=== PATIENT | female | born 1965 | race Caucasian/White ===

== ENCOUNTER 2020-05-13 07:43 | Observation (INO) | payer BC ==
--- NOTE | 2020-05-06 14:52 | HP ---
DATE: 05/13/2020 HISTORY OF PRESENT ILLNESS: The patient is a 54 year-old female who presents to the office with complaints of some postmenopausal bleeding and cramping. She is also having some issues with some urinary incontinence. She has had a history of breast cancer. She has had chemotherapy for that. She has been in menopause for 2 years. The patient has a moderate-sided pannus that causes discomfort and occasional ulcerations in the skin fold. PAST MEDICAL HISTORY: Breast cancer, neuropathy. CURRENT MEDICATIONS: Gabapentin, aspirin, a B complex vitamin and folic acid tablet. ALLERGIES: NO ALLERGIES. PAST SURGERIES: Partial lumpectomy in the left breast, endometrial ablation, cholecystectomy, and wisdom teeth removed. SOCIAL HISTORY: Occasional alcohol and smokes E-cigarettes. FAMILY HISTORY: Diabetes, heart disease, hypertension, lung cancer, chronic obstructive pulmonary disease. REVIEW OF SYSTEMS: CONSTITUTIONAL: Denies fever or chills. CHEST: Denies shortness of breath or cough. CVS: No chest pain. ABDOMEN: Denies pain, nausea, vomiting, diarrhea, constipation, or rectal bleeding. GENITOURINARY: Denies dysuria or hematuria. Reports dysfunctional uterine bleeding and low pelvic pain. EXTREMITIES: Denies swelling. PHYSICAL EXAMINATION: GENERAL: No acute distress. CHEST: Nonlabored. No shortness of breath. CVS: Regular rate and rhythm. ABDOMEN: Soft, nontender, nondistended. EXTREMITIES: No edema. NEURO: Alert, oriented. PSYCH: Appropriate. IMPRESSION: 1. DYSFUNCTIONAL UTERINE BLEEDING. 2. URINARY INCONTINENCE. PLAN: For a total abdominal hysterectomy, bilateral salpingo-oophorectomy, MMK and partial paniculectomy. This report was dictated for Dr. Ha by Fiona Mckeon NP.
[2020-05-13] MEDS ORDERED: Astramorph-Pf 5 MG/10 ML ONE (07:57)
[2020-05-13] MEDS ORDERED: MEFOXIN 2 GM PREMIX** 2 GM/50 ML ML IV SCH (08:00)
[2020-05-13] MEDS ORDERED: Lactated Ringers 1,000 ML IV SCH (08:00)
[2020-05-13] MEDS ORDERED: Lactated Ringers 1,000 ML IV ONE ×2 (08:03→12:36)
--- NOTE | 2020-05-13 08:10 | HP ---
DATE OF SURGERY: 05/13/2020 HISTORY OF PRESENT ILLNESS: The patient presents to the office with dysfunctional uterine bleeding. The patient has had menopause two years ago, having intermittent vaginal bleeding and pelvic pain. She has a history of breast cancer. She sees Dr. Ramon. She has also been having some urinary incontinence. She does have a cystocele. Bleeding is lessening but still current. She has had pelvic ultrasound. She does have some uterine fibroids. PAST MEDICAL HISTORY: Breast cancer. Urinary incontinence. She is postmenopausal. She has some neuropathy, endometriosis. PAST SURGICAL HISTORY: Partial lumpectomy of the right breast. Endometrial ablation. Laparoscopic cholecystectomy. [place] teeth extraction. ALLERGIES: NKDA. MEDICATIONS: Gabapentin, aspirin, B-complex, folic acid. FAMILY HISTORY: Diabetes. Heart disease. Hypertension. Lung cancer. COPD. SOCIAL HISTORY: Occasional wine. Smokes E-cigarette. REVIEW OF SYSTEMS: CONSTITUTIONAL: No fever. No chills. CHEST: Denies shortness of breath. CVS: Denies chest pain. ABDOMEN: Reports low abdominal pelvic pain and vaginal bleeding. Denies nausea, vomiting, diarrhea, constipation or rectal bleeding. : Reports urinary incontinence. Denies dysuria or hematuria. PHYSICAL EXAMINATION: GENERAL: No acute distress. CHEST: Nonlabored. No shortness of breath. CVS: Regular rate and rhythm. ABDOMEN: Soft, tender to palpation in lower bilateral quadrants. EXTREMITIES: No edema. NEUROLOGIC: Alert. PSYCHIATRIC: Appropriate. IMPRESSION: Moderate symptomatic cystocele, dysfunctional uterine bleeding, history of breast cancer, uterine fibroids. PLAN: Total abdominal hysterectomy, bilateral salpingo-oophorectomy and MMK procedure. As dictated by Fiona Mckeon NP.
[2020-05-13 09:22] LABS: ABO TYPING O; Antibody Screen NEGATIVE (NEGATIVE); RH TYPING POSITIVE
[2020-05-13] MEDS ORDERED: DIPRIVAN 200 MG/20 ML IV ONE (09:38)
[2020-05-13] MEDS ORDERED: Quelicin Fliptop 200 MG/10 ML ONE (09:38)
[2020-05-13] MEDS ORDERED: Zofran 4 MG/2 ML VIAL ONE (09:38)
[2020-05-13] MEDS ORDERED: Zemuron 100 MG/10 ML ONE ×3 (09:38→13:04)
[2020-05-13] MEDS ORDERED: BRIDION 200MG/2ML IV ONE (09:38)
[2020-05-13] MEDS ORDERED: Versed 2 MG/2 ML Injection ONE (09:38)
[2020-05-13] MEDS ORDERED: TORAdol 30 mg Injection ONE (09:38)
[2020-05-13] MEDS ORDERED: SUBLIMAZE 100 MCG/2 ML ONE (09:38)
[2020-05-13] MEDS ORDERED: Decadron 4 MG INJ ONE ×2 (09:38→13:08)
[2020-05-13] MEDS ORDERED: Ketamine HCl 50 MG/ML ONE (09:39)
[2020-05-13] MEDS ORDERED: Ephedrine Sulfate 50 MG/ML ONE (11:38)
[2020-05-13] MEDS ORDERED: MARCAINE 0.5%-EPI 1:200,000 VL IJ ONE (13:08)
[2020-05-13] MEDS ORDERED: TYLENOL 325 MG PO PRN (13:31)
[2020-05-13] MEDS ORDERED: Zofran 4 MG/2 ML VIAL IV PRN (13:31)
[2020-05-13] MEDS ORDERED: MORPHINE SULFATE 4 MG INJ IV PRN (13:44)
[2020-05-13 14:06] LABS: Appearance CLEAR (CLEAR); Bilirubin NEGATIVE (NEGATIVE); Blood NEGATIVE Ery/ul (0-5); Glucose NEGATIVE (NEGATIVE); Ketones NEGATIVE (NEGATIVE); Leukocyte Esterase NEGATIVE (NEGATIVE); Mucus SLIGHT /HPF (NEGATIVE); Nitrite NEGATIVE (NEGATIVE); Protein,Urine Dip NEGATIVE (Negative); RBC 0-2 /HPF (0-2); Specific Gravity 1.012 (1.005-1.025); Urobilinogen NEGATIVE mg/dL (0-1)
[2020-05-13] MEDS: Dextrose 5% -0.45 NaCl 1000 ML 1,000 ML IV SCH (14:53)
[2020-05-13] MEDS: MEFOXIN 1 Gm/ D5W 50 Ml** 1 G/50 ML ML IV SCH (17:07)
[2020-05-13] MEDS: Neurontin 100 MG PO SCH (21:40)
--- NOTE | 2020-05-13 22:46 | PCM.HP ---
History of Present Illness - Chief Complaint Chief Complaint: backpain, chronic skin infections, hx breast cancer History of Present Illness: is a 54 year old female pt of Dr. Kapil Ha with hx breast cancer who was admitted today after having abdominal hysterectomy today. Pt had not had menses x 2 years when she started having heavy bleeding. With her history of breast cancer 15 years ago, she opted for hysterectomy. She is comfortable currently, no complaints. - Review of Systems Abdominal/Gastrointestinal: Abdominal Pain Genitourinary Symptoms: Vaginal Bleeding Musculoskeletal: Other (leg pain - takes neurontin at hs) Skin: Rash (was outside yesterday and now has some rash on L lower leg, itchy) All Other Systems: Reviewed and Negative Medications & Allergies Home Medications: Home Medication List Aspirin 81 mg PO DAILY 05/03/20 [History Confirmed 05/13/20] Cholecalciferol (Vitamin D3) [Vitamin D3] 5,000 unit PO DAILY 05/03/20 [History Confirmed 05/13/20] Folic Acid 0.4 mg PO DAILY 05/03/20 [History Confirmed 05/13/20] Gabapentin 100 mg PO HS 05/03/20 [History Confirmed 05/13/20] Multivitamin [Multivitamins] 1 each PO DAILY 05/03/20 [History Confirmed 05/13/20] Cholecalciferol (Vitamin D3) [Vitamin D] 2,000 unit PO DAILY 05/13/20 [History Confirmed 05/13/20] Allergies/Adverse Reactions: Allergies Allergy/AdvReac Type Severity Reaction Status Date / Time No Known Drug Allergies Allergy Verified 05/13/20 08:05 - Past Medical History Past Medical History: Yes Neurological History: No Pertinent History ENT History: No Pertinent History Cardiac History: No Pertinent History Respiratory History: No Pertinent History Endocrine Medical History: No Pertinent History Musculoskelatal History: No Pertinent History GI Medical History: GERD, Gallbladder Disease History: Other Pyscho-Social History: No Pertinent History Reproductive Disorders: Abnormal Uterine Bleeding, Breast Cancer, Endometriosis Comment: urinary reflux as a child - Female History Hx Last Menstrual Period: menopause for 2 years Are you now?: No - Past Surgical History Past Surgical History: Yes Neuro Surgical History: No Pertinent History Cardiac History: No Pertinent History Respiratory Surgery: No Pertinent History GI Surgical History: Cholecystectomy Genitourinary Surgical Hx: No Pertinent History Musculskeletal Surgical Hx: No Pertinent History Female Surgical History: Mastectomy Other Surgical History: uterine ablation, partial left breast mastectomy, right breast reconstruction post Left mastectomy - Social History Smoking Status: Never smoker Exposure to second hand smoke: No Alcohol: Rarely Drug Use: none - Physical Exam Vital Signs: Vital Signs - 24 hr Temp Pulse Resp BP Pulse Ox 05/13/20 20:00 97.9 F 91 H 18 124/76 94 L 05/13/20 16:25 81 16 121/75 94 L 05/13/20 15:25 84 16 125/70 94 L 05/13/20 15:08 97.6 F 85 18 139/91 95 05/13/20 14:55 86 16 121/74 97 05/13/20 14:40 93 H 16 119/73 95 05/13/20 14:25 96.7 F 84 17 123/67 98 05/13/20 08:45 97.6 F 85 18 139/91 95 05/13/20 08:26 97.6 F 85 18 139/91 95 General Appearance: no apparent distress, alert Neurologic Exam: oriented x 3, cooperative Eye Exam: eyes nml inspection Ears, Nose, Throat Exam: moist mucous membranes Neck Exam: normal inspection Respiratory Exam: normal breath sounds, lungs clear, No crackles/rales, No rhonchi, No wheezing Cardiovascular Exam: regular rate/rhythm, normal heart sounds, No murmur Gastrointestinal/Abdomen Exam: soft, tenderness, other (curvilinear wound at rim of pelvis covered by clean dry dressing), No normal bowel sounds (hypoactive but present), No distention Extremity Exam: normal inspection, other (scds in place on bilat legs), No pedal edema, No swelling Skin Exam: normal color, warm, dry, rash (faint fleshy papules palpable L proximal medial lower leg) Wound Assessment: Skin/Wound Assessment Wound/Incision Assessment Start: 05/13/20 14:57 Text: Status: Active Freq: Q4H Protocol: Document 05/13/20 14:57 FERNANDO (Rec: 05/13/20 15:04 FERNANDO [id number]) Wound/Incision Assessment Lower Medial Abdomen Wound Assessment Admission Wound Type Incision Wound Stage Non Pressure Wound Dressing Status Dry & Intact Drainage Amount None Comment post-op Wound Photo Photo Taken No Results - Labs Lab/Micro Results: Lab Results-Last 24 Hours 05/13/20 05/13/20 Range/Units 08:27 12:34 Urine Color STRAW (YELLOW) Urine Appearance CLEAR (CLEAR) Urine pH 5.0 (5-6) Ur Specific [place] 1.012 (1.005-1.025) Urine Protein NEGATIVE (Negative) Urine Ketones NEGATIVE (NEGATIVE) Urine Blood NEGATIVE (0-5) Amaury/ul Urine Nitrite NEGATIVE (NEGATIVE) Urine Bilirubin NEGATIVE (NEGATIVE) Urine Urobilinogen NEGATIVE (0-1) mg/dL Ur Leukocyte Esterase NEGATIVE (NEGATIVE) Urine WBC (Auto) NONE (0-5) /HPF Urine RBC (Auto) 0-2 (0-2) /HPF U Epithel Cells (Auto) NONE (FEW) /HPF Urine Bacteria (Auto) NONE (NEGATIVE) /HPF Urine Mucus (Auto) SLIGHT (NEGATIVE) /HPF Urine Glucose NEGATIVE (NEGATIVE) mg/dL ABO Group O Rh Factor POSITIVE Antibody Screen NEGATIVE (NEGATIVE) Assessment/Plan (1) hysterectomy Current Visit: Yes Status: Acute Assessment & Plan: POD 0 - seems to be doing quite well. (2) Leg pain Current Visit: Yes Status: Chronic Qualifiers: Laterality: bilateral Qualified Code(s): M79.604 - Pain in right leg; M79.605 - Pain in left leg Assessment & Plan: resume neurontin.
[2020-05-14] MEDS: Dextrose 5% -0.45 NaCl 1000 ML 1,000 ML IV SCH ×3 (00:27→16:57)
[2020-05-14] MEDS: MEFOXIN 1 Gm/ D5W 50 Ml** 1 G/50 ML ML IV SCH ×5 (04:10→23:58)
[2020-05-14 05:44] LABS: Hematocrit 38.9 % (35-47); Hemoglobin 12.7 gm/dl (12.0-16.0); Mean Cell Volume 92.2 fl (78-100); Mean Corpuscular Hemoglobin 30.1 pg (26-32); Mean Corpuscular Hgb Concent. 32.6 g/dl (32-36); Mean Platelet Volume 10.8 fl (7.5-11.0); Platelet Count 267 K/mm3 (150-450); Red Blood Count 4.22 M/mm3 (4.1-5.4); Red Cell Distribution Width 12.8 % (11.5-14.0); White Blood Count 13.9 K/mm3 (4.0-10.5)
[2020-05-14 07:37] LABS: ANION GAP 12.7 MEQ/L (5-15); BLOOD UREA NITROGEN 9 mg/dL (7-17); CHLORIDE 108 mmol/L (98-107); Calcium 8.8 mg/dL (8.4-10.2); Carbon Dioxide 23 mmol/L (22-30); Glucose 139 mg/dL (74-106); Potassium 4.2 mmol/L (3.5-5.1); SODIUM 139 mmol/L (137-145)
[2020-05-14] MEDS: FOLATE 1 MG PO SCH (09:22)
[2020-05-14] MEDS: ENOXAPARIN SODIUM SQ SCH (09:23)
[2020-05-14] MEDS: BETAMETHASONE DIPROPIONATE TOP SCH ×2 (09:44→21:53)
[2020-05-14] MEDS ORDERED: ECOTRIN 81 MG PO SCH (10:00)
[2020-05-14] MEDS ORDERED: FOLIC ACID 0.4 MG PO SCH (10:00)
[2020-05-14] MEDS ORDERED: NON-FORMULARY ITEM (Aspirin [Aspirin] 81 MG) PO SCH (10:00)
--- NOTE | 2020-05-14 14:16 | OP ---
SURGERY DATE/TIME: 05/13/2020 1056 PREOPERATIVE DIAGNOSIS: Uterine fibroids, uterine bleeding, pelvic pain, stress incontinence, history of breast cancer. POSTOPERATIVE DIAGNOSIS: Uterine fibroids, uterine bleeding, pelvic pain, stress incontinence, history of breast cancer. PROCEDURES: 1) Total abdominal hysterectomy, bilateral salpingo-oophorectomy. 2) Betzy. SURGEON: Kapil aH M.D. ANESTHESIA: General. COMPLICATIONS: None. CONDITION: Stable. INDICATION: The patient is perimenopausal. She also had breast cancer. She has had uterine fibroids. She has had dysfunctional uterine bleeding. She has stress incontinence. Options discussed with her at this time and she wished to proceed with surgical intervention. DESCRIPTION OF PROCEDURE: The patient taken to surgery. General anesthetic, routine prep and drape. She was quite thick through the lower middle. Pfannenstiel incision was fashioned. [place] with large weights carefully applied. Small bowel packed down in the field. Colon packed down in the field. Left and right infundibulopelvic ligament taken with stapling device away from the pelvic side wall and ureter. Round ligament taken bilaterally. Broad ligament taken laterally. Four paracervical bites on the right and right were sequentially placed and suture ligated with 0 PDS. Anterior vaginal fornix was entered and circumscribed. Vagina approximated with simple interrupted sutures #0 PDS, excellent solid repair was present. Field was dry. Space of Retzius was entered. Urethra identified. Periurethral suture left and right, advanced up to the symphysis. An oblique suture on the lower bladder on both left and right, advanced up to the symphysis in labor union business representative location. These were sequentially tied. Hemostasis satisfactory. Urine clear. Peritoneum closed with 0 PDS. Anterior fascia closed with loop PDS, subcutaneous tissue irrigated. Skin closed with 3-0 Vicryl. Steri-Strips applied. Sterile dressing applied. The patient tolerated the procedure satisfactorily.
[2020-05-14] MEDS: NORCO 5/325 MG PO PRN ×2 (16:57→23:58)
--- NOTE | 2020-05-14 17:51 | PCM.NOTE ---
Date and Time: 05/14/201747 Subjective Assessment: Pt is sitting up eating breakfast. Having very little pain. Does have some discomfort with gas, but has been passing gas. Tolerating regular diet. - Review of Systems Constitutional: No Fever Abdominal/Gastrointestinal: No Vomiting Objective Exam General Appearance: no apparent distress, alert Neurologic Exam: oriented x 3, cooperative Skin Exam: normal color, warm, dry, No rash Wound Assessment: Skin/Wound Assessment Wound/Incision Assessment Start: 05/13/20 14:57 Text: Status: Active Freq: Q4H Protocol: Document 05/14/20 16:00 FERNANDO (Rec: 05/14/20 16:42 [id number]) Wound/Incision Assessment Lower Medial Abdomen Wound Assessment Shift Assessment Wound Type Incision Wound Stage Non Pressure Wound Dressing Status Dry & Intact Drainage Amount None Comment - Wound Photo Photo Taken No Ears, Nose, Throat Exam: moist mucous membranes Neck Exam: normal inspection Respiratory Exam: normal breath sounds, lungs clear, No crackles/rales, No rhonchi, No wheezing Cardiovascular Exam: regular rate/rhythm, normal heart sounds, No murmur Gastrointestinal/Abdomen Exam: soft, normal bowel sounds, tenderness (generalized), No distention Extremity Exam: normal inspection, No pedal edema, No swelling OBJECTIVE DATA Vital Signs: Vital Signs - 24 hr Temp Pulse Resp BP Pulse Ox 05/14/20 16:00 98.7 F 81 20 124/73 99 05/14/20 12:00 98.4 F 80 20 118/71 96 05/14/20 08:00 98.2 F 70 16 114/66 94 L 05/14/20 03:49 97.5 F 67 19 114/66 05/13/20 23:45 18 05/13/20 23:43 98.7 F 82 18 108/67 92 L 05/13/20 20:00 97.9 F 91 H 20 124/76 94 L Pain Assessment - Last Documented Pain Intensity [Anterior] 3 Pain Scale Used 0-10 Pain Scale Intake and Output: Intake & Output 05/12/20 05/13/20 05/14/20 05/15/20 11:59 11:59 11:59 11:59 Intake Total 2880 2185 Output Total 4680 1700 Balance -1800 485 Weight 106.2 kg 106.2 kg Lab Results: Lab Results-Last 24 Hours 05/14/20 05/14/20 Range/Units 04:42 04:42 WBC 13.9 H (4.0-10.5) K/mm3 RBC 4.22 (4.1-5.4) M/mm3 Hgb 12.7 (12.0-16.0) gm/dl Hct 38.9 (35-47) % MCV 92.2 (78-100) fl MCH 30.1 (26-32) pg MCHC 32.6 (32-36) g/dl RDW 12.8 (11.5-14.0) % Plt Count 267 (150-450) K/mm3 MPV 10.8 (7.5-11.0) fl Sodium 139 (137-145) mmol/L Potassium 4.2 (3.5-5.1) mmol/L Chloride 108 H (98-107) mmol/L Carbon Dioxide 23 (22-30) mmol/L Anion Gap 12.7 (5-15) MEQ/L BUN 9 (7-17) mg/dL Creatinine 0.50 L (0.52-1.04) mg/dL Estimated GFR > 60.0 ML/MIN Glucose 139 H (74-106) mg/dL Calcium 8.8 (8.4-10.2) mg/dL Assessment/Plan (1) hysterectomy Current Visit: Yes Status: Acute Assessment & Plan: POD #1, doing great. Having some low BPs intermittently (to 87/49 at 0350) but pt is asx. Other vitals are stable. (2) Leg pain Current Visit: Yes Status: Chronic Qualifiers: Laterality: bilateral Qualified Code(s): M79.604 - Pain in right leg; M79.605 - Pain in left leg Assessment & Plan: on neurontin.
[2020-05-14] MEDS ORDERED: Colace 100 MG PO PRN (20:05)
[2020-05-14] MEDS: Neurontin 100 MG PO SCH (21:48)
[2020-05-15] MEDS: NORCO 5/325 MG PO PRN ×3 (04:04→12:18)
[2020-05-15] MEDS: Dextrose 5% -0.45 NaCl 1000 ML 1,000 ML IV SCH (04:57)
[2020-05-15] MEDS: MEFOXIN 1 Gm/ D5W 50 Ml** 1 G/50 ML ML IV SCH ×2 (06:19→12:40)
[2020-05-15] MEDS: FOLATE 1 MG PO SCH (10:32)
[2020-05-15] MEDS: ENOXAPARIN SODIUM SQ SCH (10:33)
[2020-05-15] MEDS: BETAMETHASONE DIPROPIONATE TOP SCH (10:33)
[2020-05-15 15:22] VITALS: BP 121/66; PULSE 84; O2SAT 95
--- NOTE | 2020-05-15 15:47 | PCM.DS ---
Discharge Summary Date of Admission: 05/13/20 07:44 Admitting Physician: BELINDA BREEN Consults: Consults on Case 05/13/20 13:32 Notify Physician ROUTINE Primary Care Provider: SINTIA,TONI Allergies Allergies No Known Drug Allergies Allergy (Verified 05/13/20 08:05) Hospital Summary - Hospital Course Hospital Course: Pt is a 54 yo female with peripheral neuropathy who had a hysterectomy d/t fibroids, DUB, and hx breast cancer. For full details, see operative not by Dr. Belinda Breen. Pt has been doing well postoperatively, with some pain from gas, but passing gas and eating well. Hgb on POD#1 was >12. Up out of bed. Will be discharged to home today on pain meds per surgery. Follow up with PCP in 1 week and f/u with surgeon in 9d. - Vitals & Intake/Output Vital Signs: Vital Signs Temperature 98.9 F 05/15/20 12:00 Pulse Rate 84 05/15/20 12:00 Respiratory Rate 16 05/15/20 12:00 Blood Pressure 121/66 05/15/20 12:00 O2 Sat by Pulse Oximetry 95 05/15/20 12:00 Intake & Output: Intake & Output 05/13/20 05/14/20 05/15/20 05/16/20 11:59 11:59 11:59 11:59 Intake Total 2880 4310 360 Output Total 4680 4400 Balance -1800 -90 360 Weight 106.2 kg 106.2 kg - Lab Result Diagrams: 05/14/20 04:42 05/14/20 04:42 Micro Results-Entire Visit: Microbiology 05/13/20 12:34 Urine Culture - Preliminary Urine, Catheterized NO GROWTH TO DATE Discharge Exam General Appearance: no apparent distress, alert Neurologic Exam: oriented x 3, cooperative Eye Exam: eyes nml inspection Ears, Nose, Throat Exam: moist mucous membranes Neck Exam: normal inspection Respiratory Exam: normal breath sounds, lungs clear, No crackles/rales, No rhonchi, No wheezing Cardiovascular Exam: regular rate/rhythm, normal heart sounds, No murmur Gastrointestinal/Abdomen Exam: soft, normal bowel sounds, tenderness (diffuse mild), No distention, No mass, No guarding, No rebound Extremity Exam: normal inspection, No pedal edema, No swelling Skin Exam: normal color, warm, dry, No rash Wound Assessment: Skin/Wound Assessment Wound/Incision Assessment Start: 05/13/20 14:57 Text: Status: Active Freq: Q4H Protocol: Document 05/15/20 12:00 (Rec: 05/15/20 12:53 [id number]) Wound/Incision Assessment Lower Medial Abdomen Wound Assessment Shift Assessment Wound Type Incision Wound Stage Non Pressure Wound Dressing Status Dry & Intact Drainage Amount Minimal General Appearance Clean/Dry Primary Dressing [place] dressing Comment [place] dressing CDI with minimal amount of drainage which was circled on previous shift. No change noted from circled area. Abdominal binder in place. Wound Photo Photo Taken No Final Diagnosis/Problem List - Final Discharge Diagnosis/Problem (1) hysterectomy Current Visit: Yes Status: Acute Assessment & Plan: POD #2, doing great. Home today. (2) Leg pain Current Visit: Yes Status: Chronic Assessment & Plan: stable on neurontin. - Discharge Disposition: Home, Self-Care Condition: Stable Prescriptions: New Hydrocodone/APAP 5-325 Tab^^^ [C[place] 5-325 Tablet^^^] 1 each PO Q4H #28 tablet MDD 6 Continue Cholecalciferol (Vitamin D3) [Vitamin D3] 5,000 unit PO DAILY Folic Acid 0.4 mg PO DAILY Multivitamin [Multivitamins] 1 each PO DAILY Gabapentin 100 mg PO HS Cholecalciferol (Vitamin D3) [Vitamin D] 2,000 unit PO DAILY Discontinued Aspirin 81 mg PO DAILY Instructions: Hysterectomy (DC) Additional Instructions: No driving while taking [place] No tub bathing [facility] for s/s infection to incision site Follow up with Dr Breen as directed - call to make an appointment in the [facility] in 10 days. Follow up with: BELINDA BREEN [ACTIVE STAFF] - 1 Week TONI PATRCIIO MD [Primary Care Provider] - 1 Week Forms: Discharge Instructions
== END 2020-05-15 15:30 | disposition home or self-care (01) ==
LOC: SDC 07:43 → MED SURG 07:44 → EDSTATUS 14:35
PROVIDERS: ADMIT Surgery; ATTEND Surgery
DX: N80.0 Endometriosis of uterus (principal); D25.9 Leiomyoma of uterus, unspecified; N39.3 Stress incontinence (female) (male); N83.201 Unspecified ovarian cyst, right side; N88.8 Other specified noninflammatory disorders of cervix uteri; R10.2 Pelvic and perineal pain; M79.605 Pain in left leg; N93.9 Abnormal uterine and vaginal bleeding, unspecified; Z85.3 Personal history of malignant neoplasm of breast; G62.9 Polyneuropathy, unspecified; Z79.899 Other long term (current) drug therapy
CPT/HCPCS: 36415; 58152; 64488; 76937; 76942; 80048; 81001; 85027; 86850; 86900; 86901; 87086; G0378; 62322; 88302; J0330; J0694; J1100; J1650; J1885; J2250; J2274; J2405; J2704; J3010; L0625; A9270-GY